=== PATIENT | female | born 1955 | race Caucasian/White ===

== ENCOUNTER 2020-03-06 00:15 | Outpatient (CLI) | payer MEDICARE, OTHER, SELFPAY ==
[2020-03-06 18:35] LABS: SARS-CoV-2 RNA PCR Negative
== END 2020-03-06 00:16 | disposition home or self-care (01) ==
LOC: ANHCOVIDDT 00:15
PROVIDERS: PCP Family Medicine; Visit Provider Urology
DX: Z01.812 Encounter for preprocedural laboratory examination (principal); Z20.828 Contact with and (suspected) exposure to other viral communicable diseases
CPT/HCPCS: 87635; C9803; U0003

== ENCOUNTER 2020-03-09 01:22 | Day surgery (SDC) | payer MEDICARE, SELFPAY ==
[2020-03-03 11:07] VITALS: BMI 35.4
--- NOTE | 2020-03-05 14:46 | PM.IMHP ---
H&P: HPI History of Present Illness Date/Time: 03/05/20 14:46 Chief complaint: Hunner's Ulcer Narrative: Michelle Page is a 65 year old female she is having repeat symptoms and is ready for another steroid injection [facility] Past Medical History Medical History (Updated 03/05/20 @ 14:47 by Alfonso Bhatia MD) Arthritis Hypertension Restless leg syndrome Social History Social History Smoking status: Never smoker Alcohol intake: current Substance use: never Spiritual care concerns: No Meds Home Medications and Allergies Home Medications Medication Instructions Recorded Confirmed Type Myrbetriq 25 mg PO DAILY 06/12/19 03/03/20 History allopurinol 100 mg PO DAILY 06/12/19 03/03/20 History citalopram 20 mg PO QPM 06/12/19 03/03/20 History meloxicam 7.5 mg PO DAILY 06/12/19 03/03/20 History triamterene-hydrochlorothiazid 1 cap PO DAILY 06/12/19 03/03/20 History pregabalin 100 mg PO TID 06/18/19 03/03/20 History Allergies Allergy/AdvReac Type Severity Reaction Status Date / Time dextromethorphan Allergy Severe LOST Verified 06/18/19 13:04 HEARING, HIVES, N/V, MANY ISSUES levofloxacin Allergy Severe HIVES Verified 06/18/19 13:04 cephalexin [From Keflex] AdvReac Itching Verified 03/03/20 10:53 Exam Const: General: no acute distress Resp: Effort & Inspection: normal respiratory effort Neuro: Motor exam (neuro): Normal motor muscle tone present throughout Psych: Affect: normal affect Assessment and Plan Assessment and plan (1) Hunner's ulcer: Code(s): N30.10 - Interstitial cystitis (chronic) without hematuria Status: Acute Additional Plan cystoscopy with bladder biopsy and steroid injection
[2020-03-09] VITALS (7 sets, daily range): BP systolic 132–157; BP diastolic 58–78; PULSE 68–87; RESP 14–20; TEMP 36.3–36.7; O2SAT 95–100
--- NOTE | 2020-03-09 07:44 | WPDHPUPDATE1 ---
History and Physical Update Update Date/Time: 03/09/20 07:44 History and Physical has been reviewed, including an updated exam of the patient. There are NO changes in the patient's condition. Risks, benefits, and alternatives have been discussed and questions answered. Patient agrees to proceed with procedure.
[2020-03-09] MEDS: LACTATED RINGERS 1,000 ML 30 ML IV CONT (09:26)
--- NOTE | 2020-03-09 10:13 | WPDANESEPPF ---
Anes - Initial Pre Proc Eval Procedure: Operation Date: 03/09/20 11:00 Proposed Procedures p Cystoscopy, Bladder Biopsy With Steroid Injection - Alfonso Bhatia MD Date/Time: 03/09/20 10:13 Surgeon: Alfonso Bhatia MD Pre Op Diagnosis: Hunner's Ulcer Patient Data Age: 65 Gender: F Height: 5 ft 7 in Weight: 101.8 kg Last Vital Signs Temp 98.1 F 03/09/20 08:45 Pulse 85 03/09/20 08:45 Resp 20 03/09/20 08:45 BP 152/78 H 03/09/20 08:45 Pulse Ox 95 03/09/20 08:45 Allergies Allergy/AdvReac Type Severity Reaction Status Date / Time dextromethorphan Allergy Severe LOST Verified 03/09/20 09:45 HEARING, HIVES, N/V, MANY ISSUES levofloxacin Allergy Severe HIVES Verified 03/09/20 09:45 cephalexin [From Keflex] AdvReac Itching Verified 03/09/20 09:45 Home Medications Medication Instructions Recorded Confirmed Type Myrbetriq 25 mg PO DAILY 06/12/19 03/03/20 History allopurinol 100 mg PO DAILY 06/12/19 03/03/20 History citalopram 20 mg PO QPM 06/12/19 03/03/20 History meloxicam 7.5 mg PO DAILY 06/12/19 03/03/20 History triamterene-hydrochlorothiazid 1 cap PO DAILY 06/12/19 03/03/20 History pregabalin 100 mg PO TID 06/18/19 03/03/20 History Patient hx anesthesia problems: none Family hx anesthesia problems: none [facility] Past Medical History Medical History (Updated 03/05/20 @ 14:47 by Alfonso Bhatia MD) Arthritis Hypertension Restless leg syndrome Social History Social History Smoking status: Never smoker Alcohol intake: current Substance use: never Living arrangements: with family Spiritual care concerns: No Anes - Eval Final PreProcedure Day of Procedure 03/09/20 10:13 Patient weight: overweight Heart: regular rate and rhythm Lungs: clear to auscultation Airway: Mallampati scale class II Neurological: alert and oriented Last oral intake: >/= 8 hours ASA classification: II Emergent: no Anesthetic plan: proceed Anesthesia type and monitoring: general GIVS and standard monitoring Informed Consent: The patient's anesthetic plan and its attendant risks and benefits were discussed with the patient/family/POA. Questions were solicited and answers provided to the satisfaction of the patient/family/POA.
[2020-03-09] MEDS: ceFAZolin 2 GM/D5W 50 ML 2 GM/50 ML BAG IVPB (10:44)
[2020-03-09] MEDS: TRIAMCINOLONE ACET INJ 40 MG/ML VIAL 200 MG IM (10:59)
[2020-03-09] MEDS: LIDOCAINE HCL 2% JELLY 30 ML TUBE 1 APPLIC MUCOUS MEM (11:12)
--- NOTE | 2020-03-09 11:20 | PM.PROC ---
Procedure Note - Detailed Date of procedure: 03/09/20 Pre-op diagnosis: Hunner's Ulcer Hunner's ulcer Post-op diagnosis: same Procedure performed: Cystoscopy with bladder biopsy and injection of steroid Description of procedure: After anesthesia was induced the patient was correctly identified and informed consent was obtained. They are placed in the dorsal lithotomy position. There prepped and draped in a sterile fashion. A time-out performed. I performed cystoscopy. There were Multiple areas of Hunner's ulceration inside the bladder. These was biopsied in generously fulgurated. I then injected Kenalog at a dose of 40 milligrams/mL. I injected 5 cc total. There was minimal bleeding from the injection sites. The bladder was examined under low insufflation pressures and there was no active bleeding. The bladder was drained. The awakened and transferred to the PACU in stable condition. Implants: None Anesthesia: MAC Surgeon: Alfonso Bhatia MD Drains: No Packing: No Pathology: yes (Bladder biopsy) Complications: No immediate complications Condition: stable Disposition: PACU
== END 2020-03-09 12:52 | disposition home or self-care (01) ==
PROVIDERS: PCP Family Medicine; Visit Provider Urology
PROC: 0TBB8ZX Excision of Bladder, Via Natural or Artificial Opening Endoscopic, Diagnostic (ICD-10-PCS; CPT 52204; principal; 2020-03-09 11:00)
DX: N30.10 Interstitial cystitis (chronic) without hematuria (principal); I10 Essential (primary) hypertension; G25.81 Restless legs syndrome; M19.90 Unspecified osteoarthritis, unspecified site; E66.9 Obesity, unspecified; Z68.35 Body mass index [BMI] 35.0-35.9, adult; Z79.1 Long term (current) use of non-steroidal anti-inflammatories (NSAID); Z79.899 Other long term (current) drug therapy
CPT/HCPCS: 53899; 52214; 88305; A9270; J0690; J1100; J2250; J2405; J2704; J3010; J3301; J7120

== ENCOUNTER 2021-02-02 08:13 | Outpatient (CLI) | payer MEDICARE, SELFPAY | END 2021-02-02 08:14 | disposition home or self-care (01) | LOC: ANHSURGERY 08:16 | PROVIDERS: PCP Family Medicine; Visit Provider Urology | DX: N30.80 Other cystitis without hematuria (principal); Z01.818 Encounter for other preprocedural examination | CPT/HCPCS: 87086; 87088 ==

== ENCOUNTER 2021-02-05 01:08 | Day surgery (SDC) | payer MEDICARE, SELFPAY ==
--- NOTE | 2021-01-30 11:53 | PM.IMHP ---
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 Review of Systems Review of Systems: All systems reviewed & are unremarkable except as noted in HPI and below [facility] Past Medical History Medical History (Updated 03/05/20 @ 14:47 by Alfonso Bhatia MD) Arthritis Hypertension Restless leg syndrome Social History Social History Smoking status: Never smoker Alcohol intake: current Substance use: never Spiritual care concerns: No Meds Home Medications and Allergies Home Medications Medication Instructions Recorded Confirmed Type Myrbetriq 25 mg PO DAILY 06/12/19 03/03/20 History allopurinol 100 mg PO DAILY 06/12/19 03/03/20 History citalopram 20 mg PO QPM 06/12/19 03/03/20 History meloxicam 7.5 mg PO DAILY 06/12/19 03/03/20 History triamterene-hydrochlorothiazid 1 cap PO DAILY 06/12/19 03/03/20 History pregabalin 100 mg PO TID 06/18/19 03/03/20 History phenazopyridine [Pyridium] 200 mg PO TID PRN #30 tablet 03/09/20 Rx sulfamethoxazole-trimethoprim 1 tablet PO Q12H #6 tablet 03/09/20 Rx [Bactrim DS] tramadol 50 mg PO Q6H PRN #20 tablet 03/09/20 Rx Allergies Allergy/AdvReac Type Severity Reaction Status Date / Time dextromethorphan Allergy Severe LOST Verified 03/09/20 09:45 HEARING, HIVES, N/V, MANY ISSUES levofloxacin Allergy Severe HIVES Verified 03/09/20 09:45 cephalexin [From Keflex] AdvReac Itching Verified 03/09/20 09:45 Exam Const: General: cooperative and healthy appearing HENMT: Head: normal to inspection Face and sinus: normal facial exam Eyes: General: appearance normal, both eyes and all related structures Resp: Effort & Inspection: normal respiratory effort and able to speak in complete sentences GI: Inspection: normal to inspection Back/Spine/Pelvis: Back: no CVA tenderness Skin: General skin exam: normal color Assessment and Plan Assessment and plan (1) Hunner's ulcer: Code(s): N30.10 - Interstitial cystitis (chronic) without hematuria Status: Acute Assessment and Plan: cystoscopy, biopsy, steroid injection
[2021-02-01 14:23] VITALS: BMI 31.7
--- NOTE | 2021-02-05 04:55 | WPDHPUPDATE1 ---
History and Physical Update Update Date/Time: 02/05/21 04:55 History and Physical has been reviewed, including an updated exam of the patient. There are NO changes in the patient's condition. Risks, benefits, and alternatives have been discussed and questions answered. Patient agrees to proceed with procedure.
--- NOTE | 2021-02-05 06:25 | WPDANESEPPF ---
Anes - Initial Pre Proc Eval Procedure: Operation Date: 02/05/21 08:15 Proposed Procedures p Cystoscopy, Bladder Biopsy with Kenalog Injection - Alfonso Bhatia MD Date/Time: 02/05/21 06:25 Surgeon: Alfonso Bhatia MD Pre Op Diagnosis: eosinophilic cystitis Patient Data Age: 66 Gender: F Height: 1.7 m Weight: 92 kg Allergies Allergy/AdvReac Type Severity Reaction Status Date / Time dextromethorphan Allergy Severe LOST Verified 02/05/21 06:16 HEARING, HIVES, N/V levofloxacin Allergy Severe HIVES Verified 02/05/21 06:16 cephalexin [From Keflex] AdvReac Itching Verified 02/05/21 06:16 Home Medications Medication Instructions Recorded Confirmed Type allopurinol 100 mg PO DAILY 06/12/19 02/05/21 History citalopram 20 mg PO QPM 06/12/19 02/05/21 History meloxicam 7.5 mg PO QAM 06/12/19 02/05/21 History pregabalin 100 mg PO BID 06/18/19 02/05/21 History phenazopyridine [Pyridium] 200 mg PO TID PRN #30 tablet 03/09/20 02/05/21 Rx lisinopril 10 mg PO QAM 02/01/21 02/05/21 History trimethoprim 100 mg PO HS 02/05/21 02/05/21 History Patient hx anesthesia problems: none Family hx anesthesia problems: none PMFSH Past Medical History Medical History Arthritis Hypertension Restless leg syndrome Surgical History Surgical History (Updated 02/05/21 @ 06:26 by Alex Magallanes MD) Hx of cystoscopy Social History Social History Smoking status: Never smoker Alcohol intake: current Drinks per week: 2 Substance use: never Living arrangements: with family Additional living arrangements comments: SPOUSE Spiritual care concerns: No Anes - Eval Final PreProcedure Day of Procedure 02/05/21 06:25 Patient weight: obese Heart: regular rate and rhythm Lungs: clear to auscultation Airway: Mallampati scale class 1 Neurological: alert and oriented Last oral intake: >/= 8 hours ASA classification: II Emergent: no Anesthetic plan: proceed Anesthesia type and monitoring: general GIVS and standard monitoring Informed Consent: The patient's anesthetic plan and its attendant risks and benefits were discussed with the patient/family/POA. Questions were solicited and answers provided to the satisfaction of the patient/family/POA.
[2021-02-05] MEDS: LACTATED RINGERS 1,000 ML 30 ML IV CONT (06:50)
[2021-02-05 07:13] VITALS: BP 148/73; PULSE 77; TEMP 36.7; O2SAT 98
[2021-02-05] MEDS: ceFAZolin 2 GM/D5W 50 ML 2 GM/50 ML BAG IVPB (08:01)
[2021-02-05] MEDS: TRIAMCINOLONE ACET INJ 40 MG/ML VIAL 200 MG XX (08:18)
[2021-02-05] MEDS: LIDOCAINE HCL 2% GEL UROJET 10 ML PKG MUCOUS MEM (08:20)
--- NOTE | 2021-02-05 08:28 | W.PM.PROC2 ---
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 Findings Three areas of ulceration on posterior wall Description of Procedure she was correctly identified. Informed consent obtained. She from the operating room. She was given mac anesthesia. She was prepped and draped in a sterile fashion. Time-out performed. Cystoscopy revealed 3 areas of ulceration on the posterior wall. One of these was biopsied. All 3 areas were generously fulgurated. I injected my steroids in all 3 areas. I used 200 mg of Kenalog. I examined the bladder under low insufflation pressures. There is no active bleeding. She was awakened and transferred to PACU in stable condition. Implants None Estimated Blood Loss 1 Drains No Packing No Pathology yes Complications No immediate complications Condition stable Disposition PACU
[2021-02-05 08:35] VITALS: BP 126/55; PULSE 72; RESP 18; O2SAT 99
[2021-02-05 09:05] VITALS: BP 126/55; PULSE 72; RESP 16; O2SAT 100
[2021-02-05 09:25] VITALS: BP 158/80; PULSE 62; RESP 16
== END 2021-02-05 09:31 | disposition home health service (06) ==
PROVIDERS: PCP Family Medicine; Visit Provider Urology
PROC: 0TBB8ZX Excision of Bladder, Via Natural or Artificial Opening Endoscopic, Diagnostic (ICD-10-PCS; CPT 52204; principal; 2021-02-05 08:15)
DX: N30.80 Other cystitis without hematuria (principal); N30.10 Interstitial cystitis (chronic) without hematuria; I10 Essential (primary) hypertension; G25.81 Restless legs syndrome
CPT/HCPCS: 52204; 52283; 88305; A9270; J0690; J2704; J3301; J7120

== ENCOUNTER 2021-07-09 00:37 | Day surgery (SDC) | payer MEDICARE, SELFPAY ==
[2021-06-28 09:48] VITALS: BMI 36.8
--- NOTE | 2021-06-28 09:53 | PC.NURSE ---
Report to the Outpatient Waiting Room, entrance under the green pavilion located off [facility], at time _0900 on date __07/09/21 . OR Time: 1100 . - You and your visitor will be asked a series of questions to screen for COVID 19 for your protection. - A mask is required within the hospital. - Only one visitor is allowed at this time. Patient visitors will be guided where to wait when not with patient. Preoperative COVID Testing Requirements: No COVID Test needed if: (proof is required; if not received patient will have Rapid Test prior to entry) - Patient has received COVID Vaccine at least 14 days prior to procedure date or - Patient has positive COVID test result within last 90 days of surgery date. COVID Test needed if above criteria is not met If not COVID vaccinated a COVID test must be conducted within 72 hours of surgery and patient is asked to isolate self from time of testing until procedure. You will go to the [facility] for your COVID testing. The [facility] is located at the corner of [address] [facility]. You will only be called if COVID results are positive and your surgeon may reschedule your elective surgery date. Patients may have clear liquids (water, carbonated beverages, clear teas, apple juice) until 3 hours prior to surgery with a maximum of 20 ounces. - No food from midnight until time of surgery - Infants may have breast milk until 4 hours before surgery, infant formula 6 hours prior to surgery. - Children will be allowed to drink immediately following surgery. If applicable, please bring a bottle or sippy cup to assist with drinking. Juice, water, soda, and popsicles are readily available. For infants on formula, please bring formula the day of surgery. Pacifiers are allowed. Take the following medications with a SIP of water the morning of surgery: ___PREGABALIN Medications to discontinue per physician ALL ASPIRIN OR MEDICATION THAT CONTAINS ASA 7 DAYS PRE OP Date to take last dose Please no make-up, nail icelandic, hairspray, perfume, deodorant, or body powder the day of surgery. No jewelry (including any body piercings) or valuables the day of surgery, leave them at home. Please take a shower or bath the night before, or the morning of, surgery with an antibacterial soap. Wear comfortable, loose fitting clothing. Children are encouraged to wear pajamas. - Jewelry must be removed prior to entering the operating room. Rings and piercings that are not removed may be cut off. - The hospital will not accept responsibility for valuables. - Please leave all valuables, including medications, at home the day of surgery. If you are going home after surgery, a licensed flatbed truck driver must drive you home. - NO public transportation without another adult. - We recommend that an adult stay with you for 24 hours following discharge. - We also recommend that you do not drive, make important decision, drink alcoholic beverages, or take any drugs that were not prescribed by your health care provider for at least 24 hours after your discharge time. For Pediatric surgeries, we recommend two adults accompany the child home (only one inside the building at this time). Follow any additional instructions given to you from your surgeon. Telephone instructions given to __PATIENT and asked if any additional questions and then verbalized understanding. Patient advised to call surgeon office or pre surgery nurse liaison [phone] if any additional questions.
--- NOTE | 2021-07-04 11:34 | PM.IMHP ---
H&P: HPI History of Present Illness Date/Time: 07/04/21 11:34 history of Hunner's ulceration and eosinophilic cystitis Chief Complaint: Hunner's ulcer Review of Systems Review of Systems: All systems reviewed & are unremarkable except as noted in HPI and below PMFSH Past Medical History Medical History Arthritis Hypertension Restless leg syndrome Surgical History Surgical History Hx of cystoscopy Social History Social History Smoking status: Never smoker Alcohol intake: current Drinks per week: 2 Substance use: never Living arrangements: with family Additional living arrangements comments: SPOUSE Spiritual care concerns: No Meds Home Medications and Allergies Home Medications Medication Instructions Recorded Confirmed Type allopurinol 100 mg PO DAILY 06/12/19 06/28/21 History citalopram 20 mg PO QPM 06/12/19 06/28/21 History meloxicam 7.5 mg PO QAM 06/12/19 06/28/21 History pregabalin 100 mg PO BID 06/18/19 06/28/21 History phenazopyridine [Pyridium] 200 mg PO TID PRN #30 tablet 03/09/20 06/28/21 Rx lisinopril 10 mg PO QAM 02/01/21 06/28/21 History trimethoprim 100 mg PO HS 02/05/21 06/28/21 History famotidine [Pepcid] 20 mg PO PRN PRN 06/28/21 06/28/21 History Allergies Allergy/AdvReac Type Severity Reaction Status Date / Time dextromethorphan Allergy Severe LOST Verified 06/28/21 09:31 HEARING, HIVES, N/V levofloxacin Allergy Mild HIVES Verified 06/28/21 09:32 cephalexin [From Keflex] AdvReac Itching Verified 06/28/21 09:31 Exam Narrative: no acute distress normal breathing alert and oriented x3 Assessment and Plan Assessment and plan (1) Hunner's ulcer: Code(s): N30.10 - Interstitial cystitis (chronic) without hematuria Status: Acute Assessment and Plan: cystoscopy, bladder biopsy, steroid injection
--- NOTE | 2021-07-09 07:06 | WPDHPUPDATE1 ---
History and Physical Update Update Date/Time: 07/09/21 07:06 History and Physical has been reviewed, including an updated exam of the patient. There are NO changes in the patient's condition. Risks, benefits, and alternatives have been discussed and questions answered. Patient agrees to proceed with procedure.
[2021-07-09] MEDS: LACTATED RINGERS 1,000 ML 30 ML IV CONT (09:22)
[2021-07-09 09:24] VITALS: BP 164/91; PULSE 71; RESP 16; TEMP 36.7; O2SAT 95
--- NOTE | 2021-07-09 10:05 | WPDANESEPPF ---
Anes - Initial Pre Proc Eval Procedure: Operation Date: 07/09/21 11:00 Proposed Procedures p Cystoscopy, Bladder Biopsy with Kenalog Injection - Alfonso Bhatia MD Date/Time: 07/09/21 10:05 Surgeon: Alfonso Bhatia MD Pre Op Diagnosis: eosinophilic cystitis Patient Data Age: 66 Gender: F Height: 1.68 m Weight: 101.9 kg Last Vital Signs Temp 36.7 C 07/09/21 09:24 Pulse 71 07/09/21 09:24 Resp 16 07/09/21 09:24 BP 164/91 H 07/09/21 09:24 Pulse Ox 95 07/09/21 09:24 Allergies Allergy/AdvReac Type Severity Reaction Status Date / Time dextromethorphan Allergy Severe LOST Verified 07/09/21 08:56 HEARING, HIVES, N/V levofloxacin Allergy Mild HIVES Verified 07/09/21 08:56 cephalexin [From Keflex] AdvReac Severe Itching Verified 07/09/21 08:56 Home Medications Medication Instructions Recorded Confirmed Type allopurinol 100 mg PO DAILY 06/12/19 06/28/21 History citalopram 20 mg PO QPM 06/12/19 07/09/21 History meloxicam 7.5 mg PO QAM 06/12/19 07/09/21 History pregabalin 100 mg PO BID 06/18/19 07/09/21 History phenazopyridine [Pyridium] 200 mg PO TID PRN #30 tablet 03/09/20 06/28/21 Rx trimethoprim 100 mg PO HS 02/05/21 07/09/21 History allopurinol 100 mg PO DAILY 07/09/21 07/09/21 History nitrofurantoin monohyd/m-cryst 100 mg PO DAILY 07/09/21 07/09/21 History oxybutynin chloride 10 mg PO DAILY 07/09/21 07/09/21 History Patient hx anesthesia problems: none Family hx anesthesia problems: none Results Review: All pre-operative results and documents have been reviewed as part of the pre-operative evaluation. [facility] Past Medical History Medical History Arthritis Hypertension Restless leg syndrome Surgical History Surgical History Hx of cystoscopy Social History Social History Smoking status: Never smoker Alcohol intake: current Drinks per week: 2 Substance use: never Living arrangements: with family Additional living arrangements comments: SPOUSE Spiritual care concerns: No Anes - Eval Final PreProcedure Day of Procedure 07/09/21 10:05 Patient weight: obese Heart: regular rate and rhythm Lungs: clear to auscultation Airway: Mallampati scale class 1 Neurological: alert and oriented Last oral intake: >/= 8 hours ASA classification: II Emergent: no Anesthetic plan: proceed Anesthesia type and monitoring: general GIVS and standard monitoring Results Review: All pre-operative results and documents have been reviewed as part of the pre-operative evaluation. Informed Consent: The patient's anesthetic plan and its attendant risks and benefits were discussed with the patient/family/POA. Questions were solicited and answers provided to the satisfaction of the patient/family/POA.
[2021-07-09] MEDS: LIDOCAINE HCL 2% GEL UROJET 10 ML PKG MUCOUS MEM (11:26)
[2021-07-09] MEDS: TRIAMCINOLONE ACET INJ 40 MG/ML VIAL 200 MG IM (11:41)
--- NOTE | 2021-07-09 11:48 | W.PM.PROC2 ---
Procedure Note - Detailed Date of Procedure 07/09/21 Pre-op Diagnosis eosinophilic cystitis Post-op Diagnosis same Procedure Performed Cystoscopy, bladder biopsy, steroid injection Surgeon Alfonso Bhatia MD Anesthesia MAC Indications This is a woman with eosinophilic cystitis. She is here for repeat steroid injection She was pretreated with antibiotics Findings Multiple Hunner's ulcerations Description of Procedure She has correctly identified. Informed consent obtained. She from the operating room. She was given MAC anesthesia. She was prepped and draped in a sterile fashion. She was on antibiotics preoperatively. A time-out performed. She had areas of Hunner's ulceration on the posterior wall of her bladder. There were 3 areas total. One of these was biopsied. All lesions were generously fulgurated. I then injected Kenalog 200 mg total. I injected into the ulcerated areas. I then repeat fulgurated the injection sites. There was no bleeding under low insufflation pressures. She was awakened transferred to PACU in stable condition. Estimated Blood Loss 1 Drains No Packing No Pathology yes (Bladder biopsy) Complications No immediate complications Condition stable Disposition PACU
[2021-07-09 11:53] VITALS: BP 152/93; PULSE 82; RESP 16; O2SAT 92
[2021-07-09 12:20] VITALS: BP 180/95; PULSE 68; RESP 16; O2SAT 92
[2021-07-09 12:50] VITALS: BP 178/92; PULSE 75; RESP 16
[2021-07-09 12:58] VITALS: PULSE 75
[2021-07-09] MEDS: METOPROLOL TARTRATE INJ 5 MG/5 ML VIAL IV PUSH (12:58)
[2021-07-09 13:20] VITALS: BP 168/92; PULSE 67; RESP 16
--- NOTE | 2021-07-09 14:41 | SUR.PHASEII ---
1325 DR ROMANO AWARE OF BP 168/92 & HR 67. OKAY TO DISCHARGE HOME AND HAVE PT FOLLOW UP WITH PRIMARY IN REGARDS TO BLOOD PRESSURE.
== END 2021-07-09 13:39 | disposition home or self-care (01) ==
PROVIDERS: PCP Family Medicine; Visit Provider Urology
PROC: 0TBB8ZX Excision of Bladder, Via Natural or Artificial Opening Endoscopic, Diagnostic (ICD-10-PCS; CPT 52204; principal; 2021-07-09 11:00)
DX: N30.80 Other cystitis without hematuria (principal); I10 Essential (primary) hypertension; G25.81 Restless legs syndrome; E66.9 Obesity, unspecified; Z68.36 Body mass index [BMI] 36.0-36.9, adult
CPT/HCPCS: 52204; 52283; 88305; A9270; J2250; J2704; J3010; J3301; J7120